=== PATIENT | male | born 1955 | race Caucasian/White ===

== ENCOUNTER 2024-04-01 11:18 | Day surgery (SDC) | payer BC, MEDICARE ==
[~2024-04-01] VITALS: Ht 177.8 cm; Wt 88.5 kg
[~2024-04-01 11:18] MED LIST: ASPI81TA26 PO; ATOR1TAB21 PO; GABA-282 PO; GLIP10TA6 PO; HYDR50TA70 PO; IBUP80TA PO; IRON65TA2 PO; JARD1TAB PO; LIDOCAINE 1% SDV 5ML VIAL As Ordered ONE; LR 1,000 ML IV SCH; MOXIFLOXACIN 0.6MG/0.4ML INTRAOCULAR SYRINGE As Ordered ONE; ONDA-83 PO; OXYC-517 PO; OXYM15SP NS; PANT40TA29 PO; TAMS1CAP17 PO; THERTAB52 PO; TRAZ1TAB14 PO; VITA100018 PO
[2024-04-01] MEDS ORDERED: MIDAZOLAM INJ 2MG/2ML VIAL As Ordered ONE (13:21)
[2024-04-01] MEDS ORDERED: fentaNYL 100 MCG/2 ML INJECTION As Ordered ONE (13:21)
[2024-04-01] MEDS: FLURBIPROFEN 0.03% OPHTH SOLN 2.5 ML OS SCH (13:58)
[2024-04-01] MEDS: ATROPINE SULFATE 1% OPHTH SOLN 2ML BTL OS SCH (13:58)
[2024-04-01] MEDS: PHENYLEPHRINE 2.5% OPHTH SOL 2ML OS SCH (13:58)
[2024-04-01] MEDS: TETRACAINE 0.5% OPHTH SOLN 4ML OS SCH (13:58)
[2024-04-01 15:12] VITALS: BP 146/87; TEMP 97.1; O2SAT 95
== END 2024-04-01 15:27 | disposition home or self-care (01) ==
LOC: M SDC 11:18
PROVIDERS: ATTEND Ophthalmology
DX: H25.12 Age-related nuclear cataract, left eye (principal); E78.5 Hyperlipidemia, unspecified; E11.9 Type 2 diabetes mellitus without complications; K21.9 Gastro-esophageal reflux disease without esophagitis; D64.9 Anemia, unspecified; J44.9 Chronic obstructive pulmonary disease, unspecified; Z85.46 Personal history of malignant neoplasm of prostate; Z92.3 Personal history of irradiation; Z92.21 Personal history of antineoplastic chemotherapy; Z88.0 Allergy status to penicillin; Z88.8 Allergy status to other drugs, medicaments and biological substances; Z79.82 Long term (current) use of aspirin; Z79.84 Long term (current) use of oral hypoglycemic drugs; Z79.899 Other long term (current) drug therapy
CPT/HCPCS: 66984; J2250; J3010; V2632

== ENCOUNTER 2024-05-06 08:28 | Day surgery (SDC) | payer MEDICARE ==
[~2024-05-06] VITALS: Ht 180.3 cm; Wt 90.1 kg
[~2024-05-06 08:28] MED LIST changes: +DARO300T PO; -LIDOCAINE 1% SDV 5ML VIAL As Ordered ONE; -MOXIFLOXACIN 0.6MG/0.4ML INTRAOCULAR SYRINGE As Ordered ONE
[2024-05-06] MEDS: ATROPINE SULFATE 1% OPHTH SOLN 2ML BTL OD SCH (10:09)
[2024-05-06] MEDS: FLURBIPROFEN 0.03% OPHTH SOLN 2.5 ML OD SCH (10:10)
[2024-05-06] MEDS: TETRACAINE 0.5% OPHTH SOLN 4ML OD SCH (10:10)
[2024-05-06] MEDS: PHENYLEPHRINE 2.5% OPHTH SOL 2ML OD SCH (10:10)
[2024-05-06] MEDS ORDERED: MIDAZOLAM INJ 2MG/2ML VIAL As Ordered ONE (11:28)
[2024-05-06] MEDS ORDERED: ONDANSETRON 4MG 2ML VIAL As Ordered ONE (11:28)
[2024-05-06] MEDS ORDERED: fentaNYL 100 MCG/2 ML INJECTION As Ordered ONE (11:28)
[2024-05-06] MEDS: LIDOCAINE 1% SDV 5ML VIAL As Ordered ONE (11:41)
[2024-05-06] MEDS: MOXIFLOXACIN 0.6MG/0.4ML INTRAOCULAR SYRINGE As Ordered ONE (11:42)
[2024-05-06 12:00] VITALS: BP 169/72; TEMP 97.6; O2SAT 96
== END 2024-05-06 12:38 | disposition home or self-care (01) ==
LOC: M SDC 08:28
PROVIDERS: ATTEND Ophthalmology
DX: H25.11 Age-related nuclear cataract, right eye (principal); J44.9 Chronic obstructive pulmonary disease, unspecified; E78.00 Pure hypercholesterolemia, unspecified; D50.9 Iron deficiency anemia, unspecified; G62.9 Polyneuropathy, unspecified; Z79.82 Long term (current) use of aspirin; Z79.899 Other long term (current) drug therapy; Z88.0 Allergy status to penicillin; Z88.8 Allergy status to other drugs, medicaments and biological substances; Z85.46 Personal history of malignant neoplasm of prostate; Z92.3 Personal history of irradiation; Z79.84 Long term (current) use of oral hypoglycemic drugs; Z87.891 Personal history of nicotine dependence
CPT/HCPCS: 66984; J2250; J2405; J3010; V2632